=== PATIENT | male | born 1975 | race Hispanic/Latino ===

== ENCOUNTER 2018-12-09 14:01 | Emergency (ER) | payer SELFPAY ==
[2018-12-09] MEDS ORDERED: HYDROCODONE/ACETAMINOPHEN 5/325 MG TAB ONE (15:05)
== END 2018-12-09 16:05 | disposition home or self-care (01) ==
LOC: EDH 14:01
DX: G89.18 Other acute postprocedural pain (principal); M79.601 Pain in right arm; Z90.49 Acquired absence of other specified parts of digestive tract; Z98.890 Other specified postprocedural states
CPT/HCPCS: 99282

== ENCOUNTER 2019-08-29 14:35 | Emergency (ER) | payer OTHER ==
[2019-08-29 15:10] LABS: BASOPHILS % (AUTO) 0.6 % (0.0-5.0); EOSINOPHILS % (AUTO) 4.4 % (0.0-8.0); HEMATOCRIT 44.8 % (42-54); LYMPHOCYTES % (AUTO) 21.4 % (21.0-51.0); MEAN CORPUSCULAR HEMOGLOBIN 29.1 pg (27.0-33.0); MONOCYTES % (AUTO) 7.5 % (3.0-13.0); NEUTROPHILS % (AUTO) 65.8 % (40.0-77.0); PLATELET COUNT (AUTO) 239 K/uL (130-400); RED BLOOD CELL COUNT(AUTO) 5.09 MIL/uL (4.50-6.20); RED CELL DISTRIBUTION WIDTH 12.5 % (11.0-15.5); WHITE BLOOD COUNT (AUTO) 8.9 K/uL (4.8-10.8)
[2019-08-29 15:21] LABS: CREATININE 1.2 mg/dL (0.5-1.5); POTASSIUM 3.8 mmol/L (3.5-5.1)
[2019-08-29 15:25] LABS: ALBUMIN 3.4 g/dL (3.5-5.0); BILIRUBIN,TOTAL 0.3 mg/dL (0.2-1.0); TOTAL PROTEIN, SERUM 7.1 g/dL (6.0-8.3)
[2019-08-29 15:30] LABS: APPEARANCE,URINE Clear (CLEAR); BILIRUBIN,URINE Negative (NEGATIVE); COLOR,URINE Yellow (YELLOW); GLUCOSE, URINE (UA) Negative (NEGATIVE); KETONES,URINE Trace mg/dL (NEGATIVE); LEUKOCYTE ESTERASE ,URINE Negative (NEGATIVE); NITRATE,URINE Negative (NEGATIVE); OCCULT BLOOD,URINE Negative (NEGATIVE); PROTEIN,URINE Negative (NEGATIVE)
[2019-08-29 15:42] LABS: AMPHET/METH SCREEN,URINE NEGATIVE (NEGATIVE); BARBITURATE SCREEN, URINE NEGATIVE (NEGATIVE); BENZODIAZEPINES SCREEN,URINE NEGATIVE (NEGATIVE); CANNABINOID SCREEN,URINE POSITIVE (NEGATIVE); COCAINE SCREEN,URINE POSITIVE (NEGATIVE); OPIATE SCREEN,URINE NEGATIVE (NEGATIVE); PHENCYCLIDINE SCREEN,URINE NEGATIVE (NEGATIVE)
[2019-08-29 16:24] LABS: BACTERIA,URINE Rare /HPF (None Seen); MUCUS,URINE Few LPF (None Seen); RBC,URINE 0-1 /HPF (0-1); SQUAMOUS EPITHELIAL CELL,UR 0-2 /HPF (0-2); WBC,URINE 0-1 /HPF (0-1)
== END 2019-08-29 17:15 | disposition home or self-care (01) ==
LOC: EDH 14:35
DX: K62.5 Hemorrhage of anus and rectum (principal); K64.0 First degree hemorrhoids; K62.89 Other specified diseases of anus and rectum; Z90.49 Acquired absence of other specified parts of digestive tract; Z72.0 Tobacco use
CPT/HCPCS: 36415; 80053; 80305; 81001; 82270; 83690; 85025

== ENCOUNTER 2024-11-16 23:41 | Emergency (ER) | payer MEDICAID ==
[~2024-11-16] VITALS: Ht 167.6 cm; Wt 131.5 kg
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
[2024-11-17] MEDS: ketOROlac 15MG/ML VIAL (15MG/ML) IM ONE (00:19)
[2024-11-17 01:13] VITALS: BP 138/79; PULSE 74; RESP 19; TEMP 98.1; O2SAT 97
[2024-11-17] MEDS: methoCARBamol 500 MG TABLET PO ONE (01:20)
--- NOTE | 2024-11-17 09:49 | HMCIMG ---
FOREARM 2VWS RT REASON: pain TECHNIQUE: 2 views were obtained. FINDINGS: There is no evidence of fracture or dislocation. There is no joint effusion. The soft tissues appear unremarkable. There is no evidence of a radiopaque foreign body. IMPRESSION: No acute findings.
--- NOTE | 2024-11-17 09:49 | HMCIMG ---
HAND 3+VWS RT REASON: pain TECHNIQUE: 3 views were obtained. FINDINGS: There is no evidence of fracture or dislocation. There is no joint effusion. The soft tissues appear unremarkable. There is no evidence of a radiopaque foreign body. IMPRESSION: No acute findings.
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
== END 2024-11-17 01:25 | disposition home or self-care (01) ==
LOC: EDH 23:41
DX: M79.601 Pain in right arm (principal); E11.9 Type 2 diabetes mellitus without complications; I10 Essential (primary) hypertension
CPT/HCPCS: 73030; 73090; 73130; 99283; 99284; J1885